=== PATIENT | male | born 1985 | race African-American/Black ===

== ENCOUNTER 2021-12-04 04:00 | Emergency (ER) | payer SELFPAY | END 2021-12-04 04:19 | disposition home or self-care (01) | LOC: CSHERS 04:00 | DX: J02.9 Acute pharyngitis, unspecified (principal); B34.9 Viral infection, unspecified; I10 Essential (primary) hypertension; F17.200 Nicotine dependence, unspecified, uncomplicated | CPT/HCPCS: 99282 ==